=== PATIENT | male | born 1975 | race Caucasian/White ===

== ENCOUNTER 2023-01-09 21:07 | Emergency (ER) | payer SELFPAY ==
[~2023-01-09] VITALS: Ht 193 cm; Wt 104.3 kg
[2023-01-09 22:00] LABS: BASOPHILS # (AUTO) 0.1 (0.0-0.1); BASOPHILS % 0.5 % (0.0-1.0); EOSINOPHILS # (AUTO) 0.2 (0.0-0.4); EOSINOPHILS % 1.8 % (0.0-6.0); HEMATOCRIT 48.9 % (38.2-49.6); LYMPHOCYTES # (AUTO) 4.4 (1.0-3.2); LYMPHOCYTES % 33.4 % (18.0-39.1); MEAN CORPUSCULAR HEMOGLOBIN 31.4 pg (28-32); MEAN CORPUSCULAR HGB CONC 34.8 g/dL (31-35); MEAN CORPUSCULAR VOLUME 90.4 fL (81-99); MONOCYTES # (AUTO) 1.2 (0.2-0.8); NEUTROPHILS # (AUTO) 7.2 (2.1-6.9); NEUTROPHILS % 55.1 % (38.7-80.0); PLATELET COUNT 209 x10e3/uL (140-360); RED BLOOD COUNT 5.41 x10e6/uL (4.3-5.7); RED CELL DISTRIBUTION WIDTH 11.9 % (11.7-14.4)
[2023-01-09] MEDS ORDERED: SODIUM CHLORIDE 0.9% 1000ML 1,000 ML IV ONE (22:00)
[2023-01-09] MEDS ORDERED: SODIUM CHLORIDE FLUSH 10 ML SYR IV PRN (22:00)
[2023-01-09 22:04] LABS: INR 0.85; PROTHROMBIN TIME 12.1 seconds (11.9-14.5)
[2023-01-09 22:05] LABS: PARTIAL THROMBOPLASTIN TIME 22.3 seconds (23.8-35.5)
[2023-01-09 22:14] LABS: ALBUMIN 3.7 g/dL (3.5-5.0); ALBUMIN/GLOBULIN RATIO 1.2 (0.8-2.0); CREATININE, SERUM 0.8 mg/dL (0.72-1.25)
[2023-01-09 23:46] LABS: AMPHETAMINES SCREEN,URINE NEGATIVE (NEGATIVE); BENZODIAZEPINES SCREEN,URINE NEGATIVE (NEGATIVE); CLARITY,URINE CLEAR (CLEAR); COLOR,URINE YELLOW (YELLOW); KETONES,URINE NEGATIVE (NEGATIVE); LEUKOCYTE ESTERASE ,URINE NEGATIVE (NEGATIVE); NITRITE,URINE NEGATIVE (NEGATIVE); PHENCYCLIDINE SCREEN,URINE NEGATIVE (NEGATIVE); PROTEIN,URINE DIPSTICK NEGATIVE (NEGATIVE); URINE UROBILINOGEN 0.2 mg/dL (0.2 - 1)
[2023-01-09 23:54] LABS: BACTERIA,URINE FEW /HPF; EPITHELIAL CELLS,URINE RARE /LPF; WBC,URINE (MAN) 0-5 /HPF (0-5)
[2023-01-10 00:45] VITALS: BP 114/62; PULSE 64; RESP 16; TEMP 99.1; O2SAT 100
== END 2023-01-10 00:35 | disposition home or self-care (01) ==
LOC: ER 21:17
DX: R42 Dizziness and giddiness (principal); R00.2 Palpitations; R11.0 Nausea; F10.10 Alcohol abuse, uncomplicated
CPT/HCPCS: 36415; 70450; 71045; 80053; 80307; 81001; 82550; 84484; 85025; 85610; 85730; 93005; 94760; 99284; J7030